=== PATIENT | female | born 1995 | race Caucasian/White ===

== ENCOUNTER 2017-01-20 09:03 | Emergency (ER) | payer OTHER ==
[~2017-01-20] VITALS: Ht 162.6 cm; Wt 88.0 kg
[~2017-01-20 09:03] MED LIST: ALBU18HF INHALATION; AZIT250T94 PO; CETI10CA PO; FLUT16SP17 NASAL; IBUP800T25 PO; TRAM50TA2 PO; UDROBDM PO
[2017-01-20 09:05] VITALS: Ht 162.6 cm; Wt 88.0 kg
[2017-01-20] MEDS ORDERED: ALBUTEROL 0.083% (NEB) 2.5 MG/3 ML AMP HHN STA (09:18)
--- NOTE | 2017-01-20 09:28 | ERD ---
ER Documentation Chief Complaint Date/Time DATE: 01/20/17 TIME: 09:15 Chief Complaint asthma x2 days, inhaler tx not working HPI 21-year-old female who presents emergency department for asthma attack for 2 days. Stated that her inhaler is not working. LMP: Stated her periods started yesterday. A0. Denies headache, dizziness, blurred vision, neck pain, shoulder pain, chest pain , back pain, abdominal pain, or the possibility of being , nausea, vomiting, urinary symptoms, constipation, diarrhea, recent exposure to any illness, recent antibiotic use in the last 3 months, fever, chills. Allergies to amoxicillin. Past medical history of asthma. Surgical history of left ear surgery. Medication: Ventolin inhaler. Social: Not working at this time. Denies smoking, use of alcohol, use of illegal drugs. ROS All systems reviewed and are negative except as per history of present illness. Medications Home Meds Active Scripts Azithromycin* (Zithromax*) 250 Mg Tablet, 250 MG PO .ZPACARMEN DIRECTED, #6 TAB TAKE 500 MG (2 TABS) THE FIRST DAY THEN 250 MG (1 TAB) DAYS 2-5 Prov:SANTI JORDAN 01/20/17 Prednisone* (Prednisone*) 20 Mg Tab, 40 MG PO DAILY for 4 Days, TAB Prov:SANTI JORDAN F 01/20/17 Albuterol Sulfate* (Proair HFA*) 8.5 Gm Hfa.aer.ad, 2 PUFF INH Q4, #1 INHALER Prov:SANTI JORDAN 01/20/17 Azithromycin* (Zithromax*) 250 Mg Tablet, 250 MG PO .ZPACARMEN DIRECTED, #6 TAB TAKE 500 MG (2 TABS) THE FIRST DAY THEN 250 MG (1 TAB) DAYS 2-5 Prov:CHAY NEWBY PA-C 01/07/16 Fluticasone Propionate* (Fluticasone Propionate* Nasal) 50 Mcg/[place] - 16 Gm [place].susp, 1 SPRAY NASAL BID, #1 BOTTLE TO EACH NOSTRIL Prov:CHAY NEWBY PA-C 01/07/16 Cetirizine Hcl* (Zyrtec*) 10 Mg Capsule, 10 MG PO DAILY, #14 TAB.CHEW Prov:CHAY NEWBY PA-C 01/07/16 Albuterol Sulfate* (Ventolin HFA*) 18 Gm Hfa.aer.ad, 2 PUFF INHALATION Q4H, #1 INHALER Prov:CHAY NEWBY PA-C 01/07/16 Guaifenesin-Dextromethorphan* (Robitussin* DM) 100MG/10MG/5ML Syrup, 10 ML PO Q4H Y for COUGH for 7 Days, ML Prov:CHAY NEWBY PA-C 01/07/16 Tramadol HCl (Tramadol HCl) 50 Mg Tab, 50 MG PO Q6 Y for PAIN, #10 TAB Prov:MORGAN PIPER 02/08/15 Ibuprofen* (Motrin*) 800 Mg Tab, 800 MG PO Q6H Y for PAIN AND OR ELEVATED TEMP, #30 TAB Prov:ROMELIA SILVESTRE MD 01/28/15 Allergies Allergies: Coded Allergies: Penicillins (Verified Allergy, Unknown, 10/31/14) PMhx/Soc History of Surgery: No Anesthesia Reaction: No Hx Neurological Disorder: No Hx Respiratory Disorders: No Hx Cardiac Disorders: No Hx Psychiatric Problems: No Hx Miscellaneous Medical Probl: No Hx Alcohol Use: No Hx Substance Use: No Hx Tobacco Use: No Smoking Status: Never smoker Physical Exam Vitals Vital Signs Date Time Temp Pulse Resp B/P Pulse Ox O2 Delivery O2 Flow Rate FiO2 01/20/17 09:31 77 17 96 21 01/20/17 09:05 98.4 117 22 131/65 96 Physical Exam Const: [] Head: Atraumatic Eyes: Normal Conjunctiva ENT: Normal External Ears, Nose and Mouth. Neck: Full range of motion..~ No meningismus. Resp: Wheezing bilaterally Cardio: Regular rate and rhythm, no murmurs Abd: Soft, non tender, non distended. Normal bowel sounds Skin: No petechiae or rashes Back: No midline or flank tenderness Ext: No cyanosis, or edema Neur: Awake and alert Psych: Normal Mood and Affect Results 24 hrs Current Medications Medications (Trade) Dose Ordered Sig/[place] Route PRN Reason Start Time Stop Time Status Last Admin Dose Admin Methylprednisolone Sodium Succinate (Solu-Medrol) 125 mg ONCE ONCE IM 01/20/17 09:30 01/20/17 09:31 DC 01/20/17 09:23 Albuterol (Proventil 0.083% (Neb)) 5 mg ONCE STAT N 01/20/17 09:18 01/20/17 09:19 DC 01/20/17 09:30 Ipratropium [place] (Atrovent 0.02% (Neb)) 0.5 mg ONCE ONCE N 01/20/17 09:30 01/20/17 09:31 DC 01/20/17 09:29 Procedures/MDM 21-year-old female who presents emergency department for asthma attack for 2 days. Stated that her inhaler is not working. LMP: Stated her periods started yesterday. A0. Denies headache, dizziness, blurred vision, neck pain, shoulder pain, chest pain , back pain, abdominal pain, or the possibility of being , nausea, vomiting, urinary symptoms, constipation, diarrhea, recent exposure to any illness, recent antibiotic use in the last 3 months, fever, chills. Allergies to amoxicillin. Past medical history of asthma. Surgical history of left ear surgery. Medication: Ventolin inhaler. Social: Not working at this time. Denies smoking, use of alcohol, use of illegal drugs. Physical exam: Wheezing bilaterally. Disease process was explained to the patient and family member. Patient verbalized understanding and agreed with the treatment and plan of care. Treatment: Solu-Medrol IM. Albuterol and Atrovent breathing treatment. Reevaluation: Denies headache, dizziness, blurred vision, neck pain, shoulder pain, chest pain, back pain, abdominal pain, or the possibility of being , nausea, vomiting. No episode of emesis in the emergency department. Respirations even and unlabored. Patent airway. Lung sounds are clear to auscultation. No abdominal tenderness. Prescription: Prednisone. Pro-air. Azithromycin. Follow-up with primary care physician the next 24-48 hours. Come back here in the emergency department for any new symptoms or any worsening of symptoms. All questions and concerns are answered. Patient verbalized understanding and agreed with the plan of care. Hemodynamically stable on discharge. Departure Diagnosis: Primary Impression: Asthma Additional Impressions: Asthma with acute exacerbation Asthmatic bronchitis Condition: Stable Additional Instructions: Follow-up with primary care physician the next 24-48 hours. Come back here in the emergency department for any new symptoms or any worsening of symptoms. All questions and concerns are answered. Patient verbalized understanding and agreed with the plan of care. SANTI JORDAN Jan 20, 2017 09:28
[2017-01-20] MEDS ORDERED: ALBU8.5H3 INH (09:30)
[2017-01-20] MEDS ORDERED: IPRATROPIUM (NEB) 0.5 MG/2.5 ML AMP HHN ONE (09:30)
[2017-01-20] MEDS ORDERED: METHYLPREDNISOLONE 125 MG INJ IM ONE (09:30)
[2017-01-20] MEDS ORDERED: PRED20TA PO (09:31)
[2017-01-20] MEDS ORDERED: AZIT250T94 PO (09:31)
== END 2017-01-20 09:58 | disposition home or self-care (01) ==
LOC: FTE 09:03
DX: J45.901 Unspecified asthma with (acute) exacerbation (principal); J20.9 Acute bronchitis, unspecified
CPT/HCPCS: 94664; 96372; J2930; Z7502; Z7610

== ENCOUNTER 2017-04-17 17:27 | Emergency (ER) | END 2017-04-17 21:45 | disposition home or self-care (01) ==

== ENCOUNTER 2018-05-19 11:54 | Emergency (ER) | payer OTHER ==
[~2018-05-19] VITALS: Ht 167.6 cm; Wt 79.7 kg
[~2018-05-19 11:54] MED LIST changes: +ACET500C5 PO; +ALBU8.5H8 INH; +AZIT250T PO; -AZIT250T94 PO; +GUAI5SYR2 PO; -IBUP800T25 PO; +IBUP800T48 PO; +LEVA15HF6 INH; +OSEL75CA23 PO; +PRED20TA PO; -UDROBDM PO
[2018-05-19 12:00] VITALS: BP 115/57; PULSE 85; RESP 20; Ht 167.6 cm; Wt 79.7 kg
[2018-05-19] MEDS ORDERED: ACET500C5 PO (15:04)
--- NOTE | 2018-05-19 15:57 | ERD ---
ER Documentation Chief Complaint Chief Complaint Complans of left elbow pain sent from her Job for evaluation HPI 22-year-old female patient with no significant past medical history presents the ED complaining of left elbow injury that occurred 2 days ago as she was trying to get clothes out of the dryer, excellently hit the left side of her elbow at [employer]. Patient rates her pain a 7 out of 10. Patient reports that she has pain with movement of her left elbow. Denies any fever, chills, nausea, vomiting, loss of sensation loss of range of motion. Denies any head or neck injuries. ROS All systems reviewed and are negative except as per history of present illness. Medications Home Meds Active Scripts Acetaminophen* (Tylophen*) 500 Mg Capsule, 1 CAP PO Q6H PRN for PAIN AND OR ELEVATED TEMP, #20 CAP Prov:BIJAN JOSE PA-C 05/19/18 Oseltamivir Phosphate* (Tamiflu*) 75 Mg Capsule, 75 MG PO BID for 5 Days, CAP Prov:PASILAZACHSRUTHIANDRES Jackie 04/17/17 Prednisone* (Prednisone*) 20 Mg Tab, 40 MG PO DAILY for 4 Days, TAB Prov:PASILAZACHSANTI Mejia 04/17/17 Acetaminophen* (Tylophen*) 500 Mg Capsule, 1 CAP PO Q6H PRN for PAIN AND OR ELEVATED TEMP, #20 CAP Prov:JULIANSANTI Mejia 04/17/17 Azithromycin* (Zithromax*) 250 Mg Tablet, 250 MG PO .ZPACK DIRECTED, #6 TAB TAKE 500 MG (2 TABS) THE FIRST DAY THEN 250 MG (1 TAB) DAYS 2-5 Prov:SANTI JORDAN Jackie 04/17/17 Levalbuterol* (Xopenex* HFA) 15 Gm Inha, 1-2 PUFF INH Q4 PRN for SHORTNESS OF BREATH, #1 EA Prov:JULIANSRUTHIANDRES Jackie 04/17/17 Azithromycin* (Zithromax*) 250 Mg Tablet, 250 MG PO .ZPACK DIRECTED, #6 TAB TAKE 500 MG (2 TABS) THE FIRST DAY THEN 250 MG (1 TAB) DAYS 2-5 Prov:JULIANSRUTHIANDRES Jackie 01/20/17 Prednisone* (Prednisone*) 20 Mg Tab, 40 MG PO DAILY for 4 Days, TAB Prov:PASILASRUTHI SERRANOAR F 01/20/17 Albuterol Sulfate* (Proair HFA*) 8.5 Gm Hfa.aer.ad, 2 PUFF INH Q4, #1 INHALER Prov:SANTI JORDAN 01/20/17 Azithromycin* (Zithromax*) 250 Mg Tablet, 250 MG PO .ZPACK DIRECTED, #6 TAB TAKE 500 MG (2 TABS) THE FIRST DAY THEN 250 MG (1 TAB) DAYS 2-5 Prov:CHAY NEWBY PA-C 01/07/16 Fluticasone Propionate* (Fluticasone Propionate* Nasal) 50 Mcg/[place] - 16 Gm [place].susp, 1 SPRAY NASAL BID, #1 BOTTLE TO EACH NOSTRIL Prov:CHAY NEWBY PA-C 01/07/16 Cetirizine Hcl* (Zyrtec*) 10 Mg Capsule, 10 MG PO DAILY, #14 TAB.CHEW Prov:CHAY NEWBY PA-C 01/07/16 Albuterol Sulfate* (Ventolin HFA*) 18 Gm Hfa.aer.ad, 2 PUFF INHALATION Q4H, #1 INHALER Prov:CHAY NEWBY PA-C 01/07/16 Guaifenesin-Dextromethorphan* (Robitussin* DM) 100MG/10MG/5ML Syrup, 10 ML PO Q4H PRN for COUGH for 7 Days, ML Prov:CHAY NEWBY PA-C 01/07/16 Tramadol HCl (Tramadol HCl) 50 Mg Tab, 50 MG PO Q6 PRN for PAIN, #10 TAB Prov:MORGAN PIPER 02/08/15 Ibuprofen* (Motrin*) 800 Mg Tab, 800 MG PO Q6H PRN for PAIN AND OR ELEVATED TEMP, #30 TAB Prov:ROMELIA SILVESTRE MD 01/28/15 Allergies Allergies: Coded Allergies: Penicillins (Verified Allergy, Unknown, 10/31/14) PMhx/Soc Medical and Surgical Hx: pt denies Surgical Hx History of Surgery: No Anesthesia Reaction: No Hx Neurological Disorder: No Hx Respiratory Disorders: Yes (asthma bronchitis) Hx Cardiac Disorders: No Hx Psychiatric Problems: No Hx Miscellaneous Medical Probl: No Hx Alcohol Use: No Hx Substance Use: No Hx Tobacco Use: No FmHx Family History: No diabetes, No coronary disease Physical Exam Vitals Vital Signs Date Temp Pulse Resp B/P (MAP) Pulse Ox O2 O2 Flow FiO2 Time Delivery Rate 05/19/18 98.2 85 20 115/57 97 12:00 (76) Physical Exam Const: [id number], well-nourished. In no acute distress. Head: Atraumatic, normocephalic Eyes: Normal Conjunctiva without injection ENT: Normal external ear, nose and mouth. Neck: Full range of motion. No meningismus. Resp: Clear to auscultation bilaterally. No wheezing, rhonchi, rales, or crackles. No accessory muscle use. No retractions. Cardio: Regular rate and rhythm, no murmurs Skin: No petechiae or rashes Back: No midline tenderness. No CVA tenderness. Ext: No cyanosis, or edema. Cap refill less than 2 seconds. Distal pulses intact bilaterally. Tenderness palpation of the left olecranon. Full range of motion with flexion, extension, supination and pronation. No erythema, edema. No purulent discharge. Neur: Awake and alert. Normal gait and coordination. Muscle strength 5/5. Sensation intact bilaterally. Psych: Normal Mood and Affect Procedures/MDM 22-year-old female patient with no significant past medical history, right- handed presents to ED complaining of a left elbow injury at her job at [employer]. Patient is afebrile and nontoxic-appearing. Patient denied pain medications at this time. PROCEDURE: XR Elbow. CLINICAL INDICATION: Pain TECHNIQUE: AP, lateral and oblique views of the left elbow performed. COMPARISON: None. FINDINGS: There is normal mineralization and alignment. No acute fracture or osseous lesion is identified. There is no significant joint space narrowing. The soft tissues are unremarkable. RPTAT: AA IMPRESSION: Unremarkable examination. Patient is placed in a sling to help with application of ice. Ice therapy 20 minutes on and off was educated to patient. Splint Assessment: Neurovascularly intact pre and post splint placement with good fit. Patient likely sustained an elbow contusion. No sail sign. Patient's extremity symptoms have stabilized while they have been evaluated in the department and are appropriate for outpatient follow up. No evidence of fractures, dislocations, compartment syndrome, neurologic injury, vascular injury, open joint, open fracture, tendon laceration, septic arthritis, osteomyelitis, DVT, foreign body, or other emergent conditions. Patient has pain with pronation, if patient's symptoms do not improve, patient was strictly instructed to follow-up with an orthopedic physician and as well as her Worker's Compensation physician for clearance of working with no restrictions of duties. Diagnosis: Elbow injury Discharge medications: Tylenol Instructed parent to bring patient to follow up with addiction treatment counselor in 1-2 days. Instructed parent to bring patient back to the ED sooner for any worsening symptoms. Parent's questions were answered. Parent understood and agreed with discharge plan. Patient discharged stable. Disclaimer: Inadvertent spelling and grammatical errors are likely due to EHR/dictation software use and do not reflect on the overall quality of patient care. Also, please note that the electronic time recorded on this note does not necessarily reflect the actual time of the patient encounter. Departure Diagnosis: Primary Impression: Elbow injury Encounter type: initial encounter Laterality: left Qualified Codes: S59.902A - Unspecified injury of left elbow, initial encounter Condition: Stable Patient Instructions: Contusion, Elbow Referrals: [facility] YOU HAVE RECEIVED A MEDICAL SCREENING EXAM AND THE RESULTS INDICATE THAT YOU DO NOT HAVE A CONDITION THAT REQUIRES URGENT TREATMENT IN THE EMERGENCY DEPARTMENT. FURTHER EVALUATION AND TREATMENT OF YOUR CONDITION CAN WAIT UNTIL YOU ARE SEEN IN YOUR DOCTORS OFFICE WITHIN THE NEXT 1-2 DAYS. IT IS YOUR RESPONSIBILITY TO MAKE AN APPOINTMENT FOR FOLOW-UP CARE. IF YOU HAVE A PRIMARY DOCTOR --you should call your primary doctor and schedule an appointment IF YOU DO NOT HAVE A PRIMARY DOCTOR YOU CAN CALL OUR PHYSICIAN REFERRAL HOTLINE AT IF YOU CAN NOT AFFORD TO SEE A PHYSICIAN YOU CAN CHOSE FROM THE FOLLOWING [facility] CLINICS [facility] [address] [facility]. [facility] [address] [facility]. [facility] [address] [facility]. [facility] [address] [facility]. [facility] [address] [facility]. [facility] [address] [facility]. [facility] YOU HAVE RECEIVED A MEDICAL SCREENING EXAM AND THE RESULTS INDICATE THAT YOU DO NOT HAVE A CONDITION THAT REQUIRES URGENT TREATMENT IN THE EMERGENCY DEPARTMENT. FURTHER EVALUATION AND TREATMENT OF YOUR CONDITION CAN WAIT UNTIL YOU ARE SEEN IN YOUR DOCTORS OFFICE WITHIN THE NEXT 1-2 DAYS. IT IS YOUR RESPONSIBILITY TO MAKE AN APPOINTMENT FOR FOLOW-UP CARE. IF YOU HAVE A PRIMARY DOCTOR --you should call your primary doctor and schedule and appointment IF YOU DO NOT HAVE A PRIMARY DOCTOR YOU CAN CALL OUR PHYSICIAN REFERRAL HOTLINE AT . IF YOU CAN NOT AFFORD TO SEE A PHYSICIAN YOU CAN CHOSE FROM THE FOLLOWING [facility] INSTITUTIONS: [facility] [address] [place] [address] [facility] [address] [place] [address] [facility] [address] [place] [address] [facility] URGENT CARE/[facility] Urgent Care 7 a.m.- 11 p.m. Every Day of the Week NO APPOINTMENT OR AUTHORIZATION NEEDED [facility] Hours: Mon-Fri 9:00 AM - 5:00 PM Additional Instructions: Call your worker's compensation physician TOMORROW for an appointment during the next 2-3 days. See the doctor sooner or return here if your condition worsens before your appointment time. BIJAN JOSE PA-C May 19, 2018 15:57
== END 2018-05-19 15:18 | disposition home or self-care (01) ==
LOC: FTE 11:54
DX: S59.902A Unspecified injury of left elbow, initial encounter (principal); W22.8XXA Striking against or struck by other objects, initial encounter; Y92.9 Unspecified place or not applicable

== ENCOUNTER 2018-10-19 16:11 | Emergency (ER) | payer SELFPAY ==
[~2018-10-19] VITALS: Wt 89.0 kg
[2018-10-19] MEDS ORDERED: IBUP800T48 PO (19:30)
--- NOTE | 2018-10-19 19:32 | ERD ---
ER Documentation Chief Complaint Chief Complaint BACK PAIN HPI 23 year old females presents complaining of low back pain x 5 days. 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 She states that the pain is located across her lower back and tailbone region. She states the pain is intermittent, localized to the lowback/tailbone, and sharp in character 9/10 at worst. She denies radiation of the pain to her legs. She denies any past injury to he back. She has taken ibuprofen with moderate relief of her back pain. She denies fevers, loss of bowel/bladder function, saddle anesthesia. LMP: 1 month ago ROS All systems reviewed and are negative except as per history of present illness. Medications Home Meds Active Scripts Cyclobenzaprine Hcl* (Cyclobenzaprine Hcl*) 10 Mg Tablet, 10 MG PO TID, #15 TAB Prov:OZZY REYES PA-C 10/19/18 Ibuprofen* (Motrin*) 800 Mg Tab, 800 MG PO Q6H PRN for PAIN AND OR ELEVATED TEMP, #30 TAB Prov:OZZY REYES PA-C 10/19/18 Acetaminophen* (Tylophen*) 500 Mg Capsule, 1 CAP PO Q6H PRN for PAIN AND OR ELEVATED TEMP, #20 CAP Prov:BIJAN JOSE PA-C 05/19/18 Oseltamivir Phosphate* (Tamiflu*) 75 Mg Capsule, 75 MG PO BID for 5 Days, CAP Prov:SANTI JORDAN 04/17/17 Prednisone* (Prednisone*) 20 Mg Tab, 40 MG PO DAILY for 4 Days, TAB Prov:SANTI JORDAN 04/17/17 Acetaminophen* (Tylophen*) 500 Mg Capsule, 1 CAP PO Q6H PRN for PAIN AND OR ELEVATED TEMP, #20 CAP Prov:SANTI JORDAN 04/17/17 Azithromycin* (Zithromax*) 250 Mg Tablet, 250 MG PO .RonenPACK DIRECTED, #6 TAB TAKE 500 MG (2 TABS) THE FIRST DAY THEN 250 MG (1 TAB) DAYS 2-5 Prov:SANTI JORDAN 04/17/17 Levalbuterol* (Xopenex* HFA) 15 Gm Inha, 1-2 PUFF INH Q4 PRN for SHORTNESS OF BREATH, #1 EA Prov:PASILABAN,KLAR F 04/17/17 Azithromycin* (Zithromax*) 250 Mg Tablet, 250 MG PO .ZPACK DIRECTED, #6 TAB TAKE 500 MG (2 TABS) THE FIRST DAY THEN 250 MG (1 TAB) DAYS 2-5 Prov:SANTI JORDAN 01/20/17 Prednisone* (Prednisone*) 20 Mg Tab, 40 MG PO DAILY for 4 Days, TAB Prov:SANTI JORDAN 01/20/17 Albuterol Sulfate* (Proair HFA*) 8.5 Gm Hfa.aer.ad, 2 PUFF INH Q4, #1 INHALER Prov:SANTI JORDAN 01/20/17 Azithromycin* (Zithromax*) 250 Mg Tablet, 250 MG PO .RonenPACARMEN DIRECTED, #6 TAB TAKE 500 MG (2 TABS) THE FIRST DAY THEN 250 MG (1 TAB) DAYS 2-5 Prov:CHAY NEWBY PA-C 01/07/16 Fluticasone Propionate* (Fluticasone Propionate* Nasal) 50 Mcg/[place] - 16 Gm [place].susp, 1 SPRAY NASAL BID, #1 BOTTLE TO EACH NOSTRIL Prov:CHAY NEWBY PA-C 01/07/16 Cetirizine Hcl* (Zyrtec*) 10 Mg Capsule, 10 MG PO DAILY, #14 TAB.CHEW Prov:CHAY NEWBY PA-C 01/07/16 Albuterol Sulfate* (Ventolin HFA*) 18 Gm Hfa.aer.ad, 2 PUFF INHALATION Q4H, #1 INHALER Prov:CHAY NEWBY PA-C 01/07/16 Guaifenesin-Dextromethorphan* (Robitussin* DM) 100MG/10MG/5ML Syrup, 10 ML PO Q4H PRN for COUGH for 7 Days, ML Prov:CHAY NEWBY PA-C 01/07/16 Tramadol HCl (Tramadol HCl) 50 Mg Tab, 50 MG PO Q6 PRN for PAIN, #10 TAB Prov:MORGAN PIPER 02/08/15 Ibuprofen* (Motrin*) 800 Mg Tab, 800 MG PO Q6H PRN for PAIN AND OR ELEVATED TEMP, #30 TAB Prov:ROMELIA SILVESTRE MD 01/28/15 Allergies Allergies: Coded Allergies: Penicillins (Verified Allergy, Unknown, 10/31/14) PMhx/Soc History of Surgery: No Anesthesia Reaction: No Hx Neurological Disorder: No Hx Respiratory Disorders: Yes (asthma bronchitis) Hx Cardiac Disorders: No Hx Psychiatric Problems: No Hx Miscellaneous Medical Probl: No Hx Alcohol Use: No Hx Substance Use: No Hx Tobacco Use: No Smoking Status: Never smoker FmHx Family History: No diabetes Physical Exam Vitals Vital Signs Date Temp Pulse Resp B/P (MAP) Pulse Ox O2 O2 Flow FiO2 Time Delivery Rate 10/19/18 98.0 77 18 118/70 99 Room Air 19:45 (86) 10/19/18 98.0 67 18 120/60 99 16:15 (80) Physical Exam Const: No acute distress Head: Atraumatic Eyes: Normal Conjunctiva ENT: Normal External Ears, Nose and Mouth. Neck: Full range of motion. No meningismus. Resp: Clear to auscultation bilaterally Cardio: Regular rate and rhythm Abd: Slight tenderness to the suprapubic region of her abd, no rebounding or guarding. Skin: No petechiae or rashes Back: Moderate tenderness to the lumbar spine region and coccyx Ext: No cyanosis, or edema Neur: Awake and alert Psych: Normal Mood and Affect Results 24 hrs Laboratory Tests Test 10/19/18 18:17 10/19/18 18:18 Urine Color YELLOW Urine Clarity CLOUDY Urine pH 7.0 Urine Specific [place] 1.023 Urine Ketones NEGATIVE mg/dL Urine Nitrite NEGATIVE mg/dL Urine Bilirubin NEGATIVE mg/dL Urine Urobilinogen NEGATIVE mg/dL Urine Leukocyte Esterase NEGATIVE Leeann/ul Urine Microscopic RBC 2 /HPF Urine Microscopic WBC 2 /HPF Urine Squamous Epithelial Cells MANY /HPF Urine Bacteria FEW /HPF Urine Hemoglobin NEGATIVE mg/dL Urine Glucose NEGATIVE mg/dL Urine Total Protein NEGATIVE mg/dl POC Beta HCG, Qualitative NEGATIVE Procedures/MDM ED COURSE: The patient was stable throughout ED course. I kept the patient informed of laboratory and diagnostic imaging results throughout the ED course. DIAGNOSTIC IMAGING: Read by radiologist. PROCEDURE: XR Lumbar Spine. CLINICAL INDICATION: Low back pain TECHNIQUE: AP, lateral and cone-down lateral views of the lumbar spine were obtained. COMPARISON: No prior studies are available for comparison. FINDINGS: There is normal vertebral mineralization and alignment. No fracture or subluxation is seen. The disc spaces are normal in appearance. The posterior elements are unremarkable. Nonspecific 2 mm oval calcification in left mid pelvis. IMPRESSION: No acute abnormality seen. Please see above. RPTAT: HJES .Taye Walker MD, Date Time Electronically viewed and signed by .Taye Walker MD, on 10/19/2018 19:23 PROCEDURE: XR Sacrum and Coccyx. CLINICAL INDICATION: Low back pain TECHNIQUE: AP and lateral views of the sacrum and coccyx were performed. COMPARISON: No prior studies are available for comparison. FINDINGS: There is normal sacral and coccygeal mineralization and alignment. No fracture or subluxation is seen. The sacroiliac joints appear normal. Nonspecific 2 mm calcification in the left mid pelvis. IMPRESSION: No acute abnormality seen. Please see above. RPTAT: HJES .Taye Walker MD, MD Date Time Electronically viewed and signed by .Taye Walker MD, MD on 10/19/2018 19:24 PROCEDURES: none MEDICATIONS GIVEN: [None.] MEDICAL DECISION MAKING: Patient is a 23 year old female complaining of back pain x 5 days. 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 She states this may have been the cause of her pain. On Physical exam, Pt showed tenderness to the low back bilat. She does not like to sit down due to the pain. She has decreased ROM of her back. Xray imaging was done and was unremarkable. At this time, I think this is a M/S injury. H&P and other data not c/w emergent process (eg. TAYE, obstructed pyelo, CAUDA EQUINA SYNDROME, CORD COMPRESSION, INFILTRATIVE, INFECTIOUS ETIOLOGY, EPIDURAL ABSCESS, FRACTURE). Vital signs were reviewed. Patient is afebrile. Patient was not hypoxic. Patient was hemodynamically stable. Patient was reassured and told to follow up with primary care for further care and management. PRESCRIPTION: Flexeril, Motrin DISCHARGE: At this time, patient is stable for discharge and outpatient management. I have instructed the patient to follow-up with his/her primary care physician in 1-2 days. I have discussed with the patient the possibility of needing to see a specialist for further workup and imaging studies if symptoms persist. I have instructed the patient to promptly return to the ER for any new or worsening symptoms including increased pain, fever, nausea, vomiting, weakness or LOC. The patient and/or family expressed understanding of and agreement with this plan. All questions were answered. Home care instructions were provided. Disclaimer: Inadvertent spelling and grammatical errors are likely due to EHR/dictation software use and do not reflect on the overall quality of patient care. Also, please note that the electronic time recorded on this note does not necessarily reflect the actual time of the patient encounter. Departure Diagnosis: Primary Impression: Back pain Back pain location: low back pain Chronicity: acute Back pain laterality: bilateral Sciatica presence: without sciatica Qualified Codes: M54.5 - Low back pain Condition: Fair Patient Instructions: Back Pain (Acute Or Chronic) Referrals: COMMUNITY CLINICS YOU HAVE RECEIVED A MEDICAL SCREENING EXAM AND THE RESULTS INDICATE THAT YOU DO NOT HAVE A CONDITION THAT REQUIRES URGENT TREATMENT IN THE EMERGENCY DEPARTMENT. FURTHER EVALUATION AND TREATMENT OF YOUR CONDITION CAN WAIT UNTIL YOU ARE SEEN IN YOUR DOCTORS OFFICE WITHIN THE NEXT 1-2 DAYS. IT IS YOUR RESPONSIBILITY TO MAKE AN APPOINTMENT FOR FOLOW-UP CARE. IF YOU HAVE A PRIMARY DOCTOR --you should call your primary doctor and schedule an appointment IF YOU DO NOT HAVE A PRIMARY DOCTOR YOU CAN CALL OUR PHYSICIAN REFERRAL HOTLINE AT IF YOU CAN NOT AFFORD TO SEE A PHYSICIAN YOU CAN CHOSE FROM THE FOLLOWING [facility] [address] [facility] [address] [facility] [address] [facility] [address] [facility] [address] [facility]. [facility] [address] [facility]. [facility] YOU HAVE RECEIVED A MEDICAL SCREENING EXAM AND THE RESULTS INDICATE THAT YOU DO NOT HAVE A CONDITION THAT REQUIRES URGENT TREATMENT IN THE EMERGENCY DEPARTMENT. FURTHER EVALUATION AND TREATMENT OF YOUR CONDITION CAN WAIT UNTIL YOU ARE SEEN IN YOUR DOCTORS OFFICE WITHIN THE NEXT 1-2 DAYS. IT IS YOUR RESPONSIBILITY TO MAKE AN APPOINTMENT FOR FOLOW-UP CARE. IF YOU HAVE A PRIMARY DOCTOR --you should call your primary doctor and schedule and appointment IF YOU DO NOT HAVE A PRIMARY DOCTOR YOU CAN CALL OUR PHYSICIAN REFERRAL HOTLINE AT . IF YOU CAN NOT AFFORD TO SEE A PHYSICIAN YOU CAN CHOSE FROM THE FOLLOWING [facility]: [facility] [address] [place] [address] [facility] [address] [place] [address] [facility] [address] [place] [address] Additional Instructions: Rest your back, do not lift any heavy objects, use hot and cold ice packs. Follow-up with your primary care doctor for further care and management in the next 2 to 3 days Call your primary care doctor TOMORROW for an appointment during the next 2-3 days.See the doctor sooner or return here if your condition worsens before your appointment time. OZZY REYES PA-C Oct 19, 2018 19:32
[2018-10-19] MEDS ORDERED: CYCL10TA7 PO (19:33)
[2018-10-19 19:45] VITALS: BP 118/70; PULSE 77; RESP 18
== END 2018-10-19 19:45 | disposition home or self-care (01) ==
LOC: FTE 16:11
DX: M54.5 Low back pain (principal); J45.909 Unspecified asthma, uncomplicated
CPT/HCPCS: 72100; 72220; 81001; 81025

== ENCOUNTER 2019-02-20 20:41 | Emergency (ER) | payer MEDICAID ==
[~2019-02-20] VITALS: Ht 162.6 cm; Wt 89.9 kg
[~2019-02-20 20:41] MED LIST changes: +CYCL10TA7 PO; +IBUP-1561 PO
[2019-02-20 20:51] VITALS: BP 114/61; PULSE 78; RESP 16; Ht 162.6 cm; Wt 89.9 kg
[2019-02-20] MEDS ORDERED: IBUPROFEN 200 MG TAB PO ONE (22:00)
== END 2019-02-20 23:13 | disposition home or self-care (01) ==
LOC: FTE 20:41
DX: S63.502A Unspecified sprain of left wrist, initial encounter (principal); J45.909 Unspecified asthma, uncomplicated; W11.XXXA Fall on and from ladder, initial encounter; Y92.9 Unspecified place or not applicable
CPT/HCPCS: 29125; 73110; 81025; Z7502; Z7610